=== PATIENT | female | born 1990 | race Hispanic/Latino ===

== ENCOUNTER 2023-01-31 20:25 | Emergency (ER) | payer OTHER ==
[~2023-01-31] VITALS: Ht 154.9 cm; Wt 83.9 kg
[2023-01-31] MEDS ORDERED: ALBUTEROL/IPRATROPIUM 3 ML NEB NEB STA ×3 (20:51→21:39)
[2023-01-31] MEDS ORDERED: METHYLPREDNISOLONE SOD SUCC 125 MG/2ML VIAL IV STA (20:51)
[2023-01-31] MEDS ORDERED: ALBUTEROL/IPRATROPIUM 3 ML NEB ONE ×2 (21:03→21:54)
[2023-01-31 21:05] VITALS: PULSE 105; RESP 20; O2SAT 93
[2023-01-31 21:09] LABS: BASOPHILS # (AUTO) 0.1 (0.0-0.1); BASOPHILS % 0.7 % (0.0-1.0); EOSINOPHILS # (AUTO) 2.1 (0.0-0.4); HEMATOCRIT 45.3 % (34.2-44.1); HEMOGLOBIN 15.3 g/dL (12.0-16.0); LYMPHOCYTES # (AUTO) 2.5 (1.0-3.2); LYMPHOCYTES % 18.2 % (18.0-39.1); MEAN CORPUSCULAR HGB CONC 33.8 g/dL (31-35); MEAN CORPUSCULAR VOLUME 82.8 fL (81-99); MONOCYTES # (AUTO) 0.9 (0.2-0.8); MONOCYTES % 6.4 % (4.4-11.3); NEUTROPHILS # (AUTO) 8.2 (2.1-6.9); NEUTROPHILS % 58.8 % (38.7-80.0); PLATELET COUNT 230 x10e3/uL (140-360); RED BLOOD COUNT 5.47 x10e6/uL (3.6-5.1); RED CELL DISTRIBUTION WIDTH 12.9 % (11.7-14.4)
[2023-01-31] MEDS ORDERED: MAGNESIUM SULFATE 2GM/50ML 50 ML IV ONE ×2 (21:13→21:30)
[2023-01-31 21:25] LABS: ALBUMIN 3.9 g/dL (3.5-5.0); ANION GAP 12.8 mmol/L (8-16); CALCIUM 9.8 mg/dL (8.4-10.2); CREATININE, SERUM 0.73 mg/dL (0.57-1.11); POTASSIUM 3.8 mmol/L (3.5-5.1)
[2023-01-31 21:55] VITALS: PULSE 105; RESP 16; O2SAT 93
[2023-01-31 22:10] VITALS: PULSE 107; RESP 16
[2023-01-31] MEDS ORDERED: PREDNISONE 20 MG TAB ONE (22:35)
[2023-02-01] VITALS: O2SAT 94
[2023-02-01] MEDS ORDERED: PREDNISONE20 MG PO (00:37)
[2023-02-01] MEDS ORDERED: VENTOLIN HFA18 GM INH (00:37)
[2023-02-01] MEDS ORDERED: AZITHROMYCIN250 MG PO (00:37)
[2023-02-01] MEDS ORDERED: IOPAMIDOL 370 MG/ML 100 ML INFUS..BTL INJ ONE (06:08)
[2023-02-01] MEDS ORDERED: PREDNISONE 20 MG TAB PO SCH (09:00)
== END 2023-02-01 01:01 | disposition home or self-care (01) ==
LOC: ER 20:30
DX: R09.02 Hypoxemia (principal); J18.9 Pneumonia, unspecified organism; R07.89 Other chest pain; J45.909 Unspecified asthma, uncomplicated; Z20.822 Contact with and (suspected) exposure to COVID-19
CPT/HCPCS: 36415; 71045; 71260; 80053; 84702; 85025; 93005; 94640 ×2; 94799; 99284; J3475; J7512; Q9967; U0002